=== PATIENT | male | born 1955 | race Caucasian/White ===

== ENCOUNTER 2024-01-07 10:09 | Emergency (ER) | payer MEDICARE, SELFPAY ==
[2024-01-07 10:15] VITALS: BMI 32.9
[2024-01-07 10:17] VITALS: BP 112/69
[2024-01-07] MEDS: ATIVAN 0.5 MG PO (10:47)
[2024-01-07] MEDS: TYLENOL 1000 MG PO (10:48)
--- NOTE | 2024-01-07 11:20 | ED.GENMED ---
History of Present Illness
General
Chief Complaint: Fall
Time Seen by Provider: 01/07/24 10:16
History of Present Illness
History of Present Illness:
68-year-old male with history of chronic confusion, history of A-fib on presenting from nursing facility after a fall. Per staff, they were trying to transport patient out of the wheelchair, patient fell, struck the back of his head.
Patient is now complaining of head pain and neck pain. Patient did suffer a hematoma to the back of his head. Denies any additional injuries to his extremities, notes chronic left shoulder pain. Otherwise denies chest pain, difficulty breathing,
abdominal pain, denies focal weakness to his extremities. Denies visual changes. Denies additional acute medical complaints
Phy Exam
Physical Exam
Physical Exam:
General: Well-appearing, no clinical signs of dehydration, nontoxic and in no acute distress
HEENT: protecting airway
HEAD: Hematoma to left parietal scalp
Neck: appears supple, generalized tenderness.
CV: Normal heart rate, regular rhythm, no evidence of cyanosis
Resp: No accessory muscle use, no increased work of breathing, lungs clear to auscultation bilaterally
Abd: Soft and non-distended, no tenderness to palpation, normal bowel sounds
Extremities: Limited mobility to left upper extremity which patient reports is chronic. No deformity or signs of trauma
Neuro: alert, disoriented to time, repetitive
: deferred
Rectal: deferred
Psych: Normal affect
Skin: Intact
Course
Orders/Labs/Results
Orders:
Orders
01/07/24 10:38
CT Cervical Spine W/o Iv Contr Urgent
Comment:
Reason For Exam: fall, neck pain
CT Head W/o Iv Contrast Urgent
Comment:
Reason For Exam: fall, on
Acetaminophen [Tylenol] 1,000 mg PO NOW STA
Lorazepam [Ativan] 0.5 mg PO NOW STA
Vital Signs
Initial and Last Documented VS:
Initial Vital Signs
Pulse Resp Pulse Ox
76 16 98
01/07/24 10:16 01/07/24 10:16 01/07/24 10:16
Last Documented Vital Signs
Temp Pulse Resp BP Pulse Ox
97.8 F 71 17 112/69 99
01/07/24 10:21 01/07/24 10:21 01/07/24 10:21 01/07/24 10:17 01/07/24 10:29
MDM/Problems Addressed
MDM/Problems Addressed:
68-year-old male with history of chronic confusion presenting after a fall from the nursing facility. Vital signs on arrival are normal.
On exam, patient well-appearing, awake and alert. Patient's fall appears to be mechanical in nature, fell during transfer out of the wheelchair. Patient did suffer a head strike with evidence of hematoma, on blood thinners. Patient is also
complaining of neck pain with generalized pain to the cervical spine. For this reason we will obtain CT brain and C-spine. Otherwise no significant signs of trauma on physical exam. Patient hemodynamically stable at this time. Patient requesting
pain medication and anxiety medication. Will administer.
12:25 -CT negative for acute process. At this time patient remains hemodynamically stable. Feel stable for discharge. Will arrange transportation back to his facility. Return precautions discussed and patient verbalized understanding
*Critical Care Note
Total Time (30-74mins, 75-104mins- exclusive of procedures): Not Applicable
ED Attending Note
-
Portions of this chart may have been created with voice recognition software.� Occasional wrong word or��sound alike� substitutions may have occurred due to the inherent limitations of voice recognition software.
Discharge Plan
Departure
Referrals:
Antonio Garrett MD [Family Provider] -
Interventions
Interventions:
*Risk Screen - Suicide Last Done: 01/07/24 10:23
*General Assessment Last Done: 01/07/24 10:23
*Neglect/Abuse Screening Last Done: 01/07/24 10:23
*ED COVID-19 Vaccine History Last Done: 01/07/24 10:23
ED-Musculoskeletal Assessment Last Done: 01/07/24 10:30
ED- Neurological Assessment Last Done: 01/07/24 10:29
ED-Skin Assessment Last Done: 01/07/24 10:29
Discharge Date and Time
Print Language: ISRAELI
== END 2024-01-07 13:43 | disposition home or self-care (01) ==
LOC: EMR 10:09
PROVIDERS: EMERGENCY PHYSICIAN Student in an Organized Health Care Education/Training Program; FAMILY PHYSICIAN Internal Medicine
DX: S00.03XA Contusion of scalp, initial encounter (principal); W05.0XXA Fall from non-moving wheelchair, initial encounter; I48.91 Unspecified atrial fibrillation; Z79.01 Long term (current) use of anticoagulants
CPT/HCPCS: 99284; 70450; 72125